=== PATIENT | female | born 1950 | race Caucasian/White ===

== ENCOUNTER 2021-01-06 13:58 | Outpatient (CLI) | payer MEDICARE, SELFPAY ==
--- NOTE | ~2021-01-06 | DEXA_ITS ---
Bone Density Report Name: Heaven Chowdary Age: 70 Sex: Female Ethnicity: White Date of : 1950 Indication: postmenopausal; prior fracture; Referring Provider: Jose Cruz, Radha Study: Bone densitometry was performed. Exam Date: January 06, 2021 Accession number: [id number] Bone Density: Region BMD T-score Z-score Classification AP Spine (L1, L2, L3) 0.761 -2.3 -0.3 Osteopenia Femoral Neck (Left) 0.626 -2.0 -0.2 Osteopenia Total Hip (Left) 0.785 -1.3 0.2 Osteopenia Total Hip Bilateral Avg 0.792 -1.3 0.3 Osteopenia Femoral Neck (Right) 0.583 -2.4 -0.6 Osteopenia Total Hip (Right) 0.797 -1.2 0.3 Osteopenia World Health Organization criteria for BMD impression classify patients as: Normal (T-score at or above -1.0), Osteopenia (T-score between -1.0 and -2.5), or Osteoporosis (T-score at or below -2.5). 10-year Fracture Risk(1): Major Osteoporotic Fracture 20% Hip Fracture 4.5% Reported Risk Factors: [place] (), Neck BMD=0.583, BMI=32.5, previous fracture (1) FRAX(R) Version 3.08. Fracture probability calculated for an untreated patient. Fracture probability may be lower if the patient has received treatment. Clinical Information Provided by Patient: Has had a low trauma fracture Has used the following medications: Vitamin D, Calcium Patient maximum height was 61 Menopause Age: 55 Onset of menses at age 13 Number of children 2 Impression: The patient has low bone mass, based on the Right Femoral Neck T-score. The patient has an estimated ten-year risk of hip fracture of 4.5% and an estimated ten-year risk of major fracture of 20%, based on the WHO FRAX algorithm. The patient has risk factors, including: previous fracture. Discussion: BONE DENSITY IS LOW AT ONE OR MORE SKELETAL SITES. THE PATIENT'S BMD AND CLINICAL RISK FACTORS CONTRIBUTE TO THIS PATIENT'S HIGH RISK OF FRACTURE. This patient's lowest T-score is low at one or more skeletal sites. It meets the World Health Organization's (WHO) criteria for ?low bone mass? (T-score between -1.0 and -2.5). The patient's 10-year risk of hip fracture and 10 year risk of a major osteoporotic fracture as calculated by FRAX exceeds the threshold where pharmacological therapy is recommended by the National Osteoporosis Foundation (NOF). However, all treatment decisions require clinical judgment and consideration of individual patient factors, including patient preferences, comorbidities, previous drug use, risk factors not captured in the FRAX model (e.g., frailty, falls, vitamin D deficiency, increased bone turnover, interval significant decline in bone density) and possible under or overestimation of fracture risk by FRAX. The patient should follow a healthful lifestyle (good nutrition with adequate calcium and vitamin D, and appropriate weight-miladsy
== END 2021-01-06 13:59 | disposition home or self-care (01) ==
LOC: ANHIMG 14:04
PROVIDERS: PCP Family Medicine; Visit Provider Nurse Practitioner
DX: M85.80 Other specified disorders of bone density and structure, unspecified site (principal); Z78.0 Asymptomatic menopausal state
CPT/HCPCS: 77080

== ENCOUNTER 2021-11-13 20:51 | Emergency (ER) | payer MEDICARE, SELFPAY ==
--- NOTE | ~2021-11-13 | XR_ITS ---
EXAM: XR forearm LT 2V DATE: 11/13/2021 21:24 HISTORY: FALL X TODAY . COMPARISON: None available. FINDINGS: Decreased mineralization. No fracture or dislocation. No lytic or blastic lesion. Joint sp aces are maintained. No erosion or periosteal change. Soft tissues within normal limits. IMPRESSION: No acute osseous finding in the left forearm. Reviewed, dictated and finalized at location K.
--- NOTE | ~2021-11-13 | XR_ITS ---
EXAMINATION: XR ribs LT 2V, XR chest 2V DATE: 11/13/2021 21:53 INDICATION: Left-sided chest and rib pain post fall TECHNIQUE: 1. PA and lateral views of the chest were obtained. 2. 3 views of the left ribs were obtained. COMPARISON: Radiographs dated 05/02/2018 and 07/22/2015 FINDINGS: Chest: Chronic elevation of the left hemidiaphragm. No focal airspace opacities, pulmonary edema, pleural ef fusion or pneumothorax. Cardiomediastinal silhouette is normal. Left ribs: No rib fractures identified. Cholecystectomy clips in right upper quadrant. Moderate spondylosis. IMPRESSION: 1. Chronic elevation the left hemidiaphragm. No rib fracture or acute cardiopulmonary disease. Reviewed, dictated and finalized at location A. IMPRESSION: 1. Chronic elevation the left hemidiaphragm. No rib fracture or acute cardiopul monary disease.
--- NOTE | ~2021-11-13 | XR_ITS ---
EXAMINATION: XR humerus LT DATE: 11/13/2021 21:52 INDICATION: Generalized left upper arm pain post fall TECHNIQUE: AP and lateral views of the left humerus were obtained. COMPARISON: None. FINDINGS: Alignment is normal. No fracture. Mild osteoarthritis at the left elbow and acromioclavicular joints. Soft tissues are unremarkable. Gas within the stomach below the elevated left hemidiaphragm. IMPRESSION: 1. No acute osseous abnormality. Reviewed, dictated and finalized at location A.
[2021-11-13 21:07] VITALS: BP 175/79; PULSE 92; RESP 18; TEMP 36.9; O2SAT 98
--- NOTE | 2021-11-13 22:06 | ED.GENADULT ---
HPI - General Adult General Chief complaint: Extremity Injury, Upper Stated complaint: mechanical fall, LUE injury Time Seen by Provider: 11/13/21 21:58 History of Present Illness HPI narrative: Patient is a 71-year-old female here for evaluation of left upper extremity pain after a fall earlier today. 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 No head injury or loss of consciousness. Notes that she has had left upper arm pain, left wrist pain and also pain on the left side of her ribs. The pain in her ribs is worse with deep breaths. She attempted 600 mg of Tylenol about 2 hours prior to arrival, is still having pain. Denies numbness, weakness,or tingling in her arm. She was in her usual state of health prior to the fall. Related Data Home Medications Medication Instructions Recorded Confirmed metoprolol succinate 25 mg 25 mg PO DAILY 07/04/19 04/27/21 tablet,extended release 24 hr (Toprol XL) rivaroxaban 20 mg tablet (Xarelto) 20 mg PO QPM 07/04/19 04/27/21 rosuvastatin 10 mg tablet (Crestor) 10 mg PO DAILY 10/22/19 04/27/21 Allergies Allergy/AdvReac Type Severity Reaction Status Date / Time Iodine and Iodide Containing Allergy Intermediate Hives / Verified 04/27/21 08:44 Produc Red Face Review of Systems Review of Systems: Gen: Denies fevers or chills Eyes: Denies eye pain or visual change ENT: Denies congestion Respiratory: Denies shortness of breath or cough CV: Denies chest pain or palpitations GI: Denies abdominal pain nausea, emesis or diarrhea : denies burning, urgency, frequency or hematuria Musculoskeletal: Reports left upper extremity pain and left-sided rib pain Neuro: Denies numbness, tingling, weakness or focal weakness Skin: Denies rash Except as documented, all other systems reviewed and negative PMFSH Social History Social History Smoking status: Never smoker Alcohol intake: current Exam Narrative: APPEARANCE: Well appearing, no pain in distress, well-nourished. Head: Normocephalic and atraumatic. EYES: PERRLA/EOMI, conjunctivae clear NOSE: No nasal drainage EARS: External ear normal in appearance THROAT: Oropharynx is clear. Mucous membranes are moist. NECK: Supple. No adenopathy, no masses. RESPIRATORY: Airway patent, respirations nonlabored. Clear to auscultation bilaterally, no rales, rhonchi, wheezing. CARDIOVASCULAR: Regular rate and rhythm without murmurs, rubs, or gallops. ABDOMINAL: Normoactive bowel sounds. Soft, nontender, nondistended. No rebound tenderness or guarding. MUSCULOSKELETAL: Left humerus has a large contusion over lateral aspect. Tenderness to palpation over left distal radius, no anatomic snuffbox tenderness. Full range of motion in wrist and fingers without pain. Full range of motion in arm without pain. 2+ radial pulses bilaterally. Tender to palpation over lateral ribs under left breast. NEURO: Normal speech. No focal neurologic deficits. SKIN: Skin is warm and dry. No rashes. PSYCHIATRIC: Normal affect/mood. Course Vital Signs Vital signs: Vital Signs Temperature 98.5 F 11/13/21 21:07 Pulse Rate 92 11/13/21 21:07 Respiratory Rate 18 11/13/21 21:07 Blood Pressure 175/79 H 11/13/21 21:07 Pulse Oximetry 98 11/13/21 21:07 Oxygen Delivery Room Air 11/13/21 21:07 Temperature 98.5 F 11/13/21 21:07 Pulse Rate 99 11/13/21 23:18 Respiratory Rate 18 11/13/21 23:18 Blood Pressure 138/90 11/13/21 23:18 Pulse Oximetry 100 11/13/21 23:18 Oxygen Delivery Room Air 11/13/21 21:07 Medical Decision Making [facility] Narrative Medical decision making narrative: 71-year-old female here for evaluation of left upper extremity pain and left-sided rib pain after a presumed mechanical fall earlier today. No head injury, her vital signs are normal, she is point tender along the ribs on the left l
[2021-11-13] MEDS: LIDOCAINE 5% PATCH 1 PATCH TRANSDERM (22:33)
[2021-11-13 23:18] VITALS: BP 138/90; PULSE 99; RESP 18; O2SAT 100
== END 2021-11-13 23:21 | disposition home or self-care (01) ==
PROVIDERS: Emergency Provider Emergency Medicine; PCP Family Medicine
DX: S49.92XA Unspecified injury of left shoulder and upper arm, initial encounter (principal); S59.912A Unspecified injury of left forearm, initial encounter; S29.9XXA Unspecified injury of thorax, initial encounter; W01.0XXA Fall on same level from slipping, tripping and stumbling without subsequent striking against object, initial encounter
CPT/HCPCS: 71046; 71100; 73060; 73090; 99284; A9270

== ENCOUNTER → 2023-06-11 10:49 | Outpatient (CLI) | payer MEDICARE, SELFPAY ==
--- NOTE | ~2023-06-11 | XR_ITS ---
Cervical Spine: AP, lateral, open-mouth views Clinical History: Pain Findings: The normal lordotic curve is maintained. No fracture identified. There is 3 mm anterolisthe sis of C5 over C6. Intervertebral disc spaces are preserved. There is mild to moderate facet arthropa thy throughout the cervical spine. Pre-vertebral soft tissues are unremarkable. Impression: No fracture. 3 mm anterolisthesis of C5 over C6. [id number] degenerative spondylosis, as above. Reviewed, dictated and finalized at location . [employer] Impression: No fracture. 3 mm anterolisthesis of C5 over C6. [id number] degenerative spondylosis, as above.
== END ==
PROVIDERS: PCP Family Medicine; Visit Provider Nurse Practitioner Family
DX: M47.892 Other spondylosis, cervical region (principal)
CPT/HCPCS: 72040

== ENCOUNTER 2023-08-17 11:35 | Outpatient (CLI) | payer MEDICARE, SELFPAY ==
--- NOTE | ~2023-08-17 | XR_ITS ---
Thoracic spine: Clinical Indication: Radiculopathy AP and lateral views were performed. No fracture is seen. There is normal alignment of the vertebrae. Scattered mild degenerative disc ch anges are present. Paravertebral soft tissues appear normal. Impression: Scattered mild degenerative disc changes in the thoracic spine. Reviewed, dictated and finalized at [facility]. Impression: Scattered mild degenerative disc changes in the thoracic spine.
== END 2023-08-17 11:36 ==
PROVIDERS: PCP Family Medicine; Visit Provider Family Medicine
DX: M51.34 Other intervertebral disc degeneration, thoracic region (principal)
CPT/HCPCS: 72072

== ENCOUNTER 2023-09-29 09:50 | Outpatient (CLI) | payer MEDICARE, SELFPAY ==
--- NOTE | ~2023-09-29 | DEXA_ITS ---
Bone Density Report Name: NIMESH GALAN Age: 73 Sex: Female Ethnicity: White Date of : 1950 Indication: osteopenia; Referring Provider: SALVATORE, EFE Study: Bone densitometry was performed. Exam Date: September 29, 2023 Accession number: [id number] Bone Density: Region BMD T-score Z-score Classification AP Spine(L1-L4) 0.818 -2.1 0.2 Osteopenia Femoral Neck (Left) 0.649 -1.8 0.2 Osteopenia Total Hip (Left) 0.772 -1.4 0.3 Osteopenia Femoral Neck (Right) 0.585 -2.4 -0.4 Osteopenia Total Hip (Right) 0.776 -1.4 0.3 Osteopenia Total Hip Mean 0.774 -1.4 0.3 Osteopenia World Health Organization criteria for BMD impression classify patients as: Normal (T-score at or above -1.0), Osteopenia (T-score between -1.0 and -2.5), or Osteoporosis (T-score at or below -2.5). 10-year Fracture Risk(1): Major Osteoporotic Fracture 14% Hip Fracture 3.5% Reported Risk Factors: [place] (), Neck BMD=0.585, BMI=33.8 (1) FRAX(R) Version 3.08. Fracture probability calculated for an untreated patient. Fracture probability may be lower if the patient has received treatment. Previous Exams: Region Exam Age BMD T-score BMD Change BMD Change Date g/cm2 vs Baseline vs Previous Total Hip(Left) 09/29/2023 73 0.772 -1.4 -0.013 (-1.6%) -0.013 (-1.6%) 01/06/2021 70 0.785 -1.3 Total Hip(Right) 09/29/2023 73 0.776 -1.4 -0.021 (-2.7%) -0.021 (-2.7%) 01/06/2021 70 0.797 -1.2 *Denotes significance at 95% confidence level, LSC for Total Hip = 0.027 g/cm2 # Denotes dissimilar scan types or analysis methods Clinical Information Provided by Patient: Has used the following medications: Vitamin D Patient maximum height was 60.5 Menopause Age: 55 Onset of menses at age 13 Number of children 2 Impression: The patient has low bone mass, based on the Right Femoral Neck T-score. The patient has an estimated ten-year risk of hip fracture of 3.5% and an estimated ten-year risk of major fracture of 14%, based on the WHO FRAX algorithm. No significant bone loss was observed. Discussion: BONE DENSITY IS LOW AT ONE OR MORE SKELETAL SITES. THE PATIENT'S BMD AND CLINICAL RISK FACTORS CONTRIBUTE TO THIS PATIENT'S INCREASED RISK OF FRACTURE. This patient's lowest T-score is low at one or more skeletal sites. It meets the World Health Organization's (WHO) criteria for ?low bone mass? (T-score between -1.0 and -2.5). The patient's 10-year risk of hip fracture as calculated by FR
== END 2023-09-29 09:51 | disposition home or self-care (01) ==
LOC: ANHIMG 09:53
PROVIDERS: PCP Family Medicine; Visit Provider Nurse Practitioner
DX: Z78.0 Asymptomatic menopausal state (principal); M85.89 Other specified disorders of bone density and structure, multiple sites
CPT/HCPCS: 77080

== ENCOUNTER 2023-11-28 09:44 | Outpatient (CLI) | payer MEDICARE, SELFPAY ==
--- NOTE | ~2023-11-28 | CT_ITS ---
CT of the Abdomen and Pelvis: Indication: Abdominal pain Technique: 2.5 mm axial scans were obtained through the abdomen and pelvis following intravenous adm inistration of 100 cc of Omnipaque 350. Dose reduction technique was used on this scan by utilizing a utomated exposure control and iterative reconstruction technique. The dose-length product (DLP) was 7 27.31 mGy-cm. Findings: Scans through the lung bases are unremarkable. The liver, spleen, pancreas, adrenals and right kidney are within normal limits. Cholecystectomy clip s are present. Nonobstructing left renal stones are present. There are atherosclerotic calcifications of the aorta. No lymphadenopathy. No bowel obstruction or bowel wall thickening. There is sigmoid diverticulosis. Images through the pelvis were performed. Urinary bladder unremarkable. No adnexal mass evident. No a scites. Impression: Nonobstructing left renal stones. Reviewed, dictated and finalized at [facility]. Impression: Nonobstructing left renal stones.
[2023-11-28 10:05] LABS: Estimated Glomerular Filt Rate > 60
== END 2023-11-28 09:45 ==
LOC: MICIMG 09:46
PROVIDERS: PCP Family Medicine; Visit Provider Family Medicine
DX: R10.9 Unspecified abdominal pain (principal); N20.0 Calculus of kidney
CPT/HCPCS: 74177; Q9967

== ENCOUNTER 2024-07-24 08:53 | Outpatient (CLI) | payer MEDICARE, SELFPAY ==
--- NOTE | ~2024-07-24 | XR_ITS ---
XR knee LT 3V 07/24/2024 09:30 Indication: Left knee pain Procedure: 3 views left knee Comparison: No prior studies for comparison. Findings: No fracture, subluxation or dislocation. There is mild osteoarthritis of the knee. No joint effusion. Impression: 1: Mild osteoarthritis of the left knee. Reviewed, dictated and finalized at location A. Impression: 1: Mild osteoarthritis of the left knee.
--- NOTE | ~2024-07-24 | XR_ITS ---
XR knee RT 3V 07/24/2024 09:30 INDICATION: Right knee pain PROCEDURE: 3 views right knee COMPARISON: No prior studies for comparison. FINDINGS: Fracture, dislocation or subluxation is not identified. No significant joint effusion. The soft tissues appear within normal limits. No foreign bodies are identified. There is mild patellofem oral compartment osteoarthritis along the lateral facet. IMPRESSION: 1: Mild patellofemoral compartment osteoarthritis. Reviewed, dictated and finalized at location A.
== END 2024-07-24 08:54 | disposition home or self-care (01) ==
LOC: GOSHIMG 08:54
PROVIDERS: PCP Family Medicine; Visit Provider Family Medicine
DX: M17.0 Bilateral primary osteoarthritis of knee (principal)
CPT/HCPCS: 73562

== ENCOUNTER 2024-09-09 09:47 | Outpatient (CLI) | payer MEDICARE, SELFPAY ==
--- NOTE | ~2024-09-09 | MR_ITS ---
MRI of the left knee Clinical history: Pain Technique: Coronal proton density and proton density-weighted images, sagittal proton-density and T2 fat-sat images, and axial proton-density fat-saturated images were acquired. Findings: Anterior and posterior cruciate ligaments are intact. Medial collateral ligament and the la teral collateral ligament complex are intact. Popliteus tendon is intact. There is probable radial tear or partial meniscectomy at the posterior root of the medial meniscus. T here is severe intrasubstance degenerative signal in the posterior horn of the medial meniscus extend ing into the body segment. Lateral meniscus intact. There is diffuse high-grade chondromalacia the medial compartment. Articular cartilage in lateral and patellofemoral compartments is well preserved. There are focal areas of susceptibility artifact of t he proximal tibia and at the medial subcutaneous soft tissues in this region, which could reflect pos t traumatic or postoperative change. Extensor mechanism intact. No joint effusion or Rodriguez's cyst. Impression: Suspected radial tear at the posterior root of the medial meniscus versus possibly postoperative ruiz ge. Severe intrasubstance degenerative signal to posterior horn of the medial meniscus extending to t he body segment. Several metallic foci in the proximal tibia and medial subcutaneous soft tissues could reflect postst enotic versus postoperative change. Correlate with history. 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 Reviewed, dictated and finalized at location M. Impression: Suspected radial tear at the posterior root of the medial meniscus versus possi lillian postoperative change. Severe intrasubstance degenerative signal to posterio r horn of the medial meniscus extending to the body segment. Several metallic foci in the proximal tibia and medial subcutaneous soft tissue s could reflect poststenotic versus postoperative change. Correlate with histor y. 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
--- NOTE | ~2024-09-09 | MR_ITS ---
MRI of the right knee Clinical history: Pain Technique: Coronal proton density and proton density-weighted images, sagittal proton-density and T2 fat-sat images, and axial proton-density fat-saturated images were acquired. Findings: Anterior and posterior cruciate ligaments are intact. Medial collateral ligament and the la teral collateral ligament complex are intact. Popliteus tendon is intact. There is a radial tear at the posterior root of the medial meniscus with superimposed suspected obliq ue/horizontal tear of the posterior horn and body. No lateral meniscal tear evident. There is moderate to high-grade chondromalacia at the medial joint line, with suspected focal early s ubchondral insufficiency fracture in the medial tibial plateau. There is mild amorphous marrow edema at the medial tibial plateau. Extensor mechanism is intact. No significant joint effusion or Rodriguez's cyst. Impression: Suspected early subchondral insufficiency fracture of the medial tibial plateau with surrounding penelope ow edema. Radial tear of the posterior root of the medial meniscus with probable superimposed oblique/horizonta l tear of the posterior horn and body. Reviewed, dictated and finalized at location . Impression: Suspected early subchondral insufficiency fracture of the medial tibial plateau with surrounding marrow edema. Radial tear of the posterior root of the medial meniscus with probable superimp osed oblique/horizontal tear of the posterior horn and body.
== END 2024-09-09 09:48 | disposition home or self-care (01) ==
LOC: GOSHIMG 09:48
PROVIDERS: PCP Family Medicine; Visit Provider Physician Assistant Surgical
DX: M25.562 Pain in left knee (principal); S83.241A Other tear of medial meniscus, current injury, right knee, initial encounter; X58.XXXA Exposure to other specified factors, initial encounter
CPT/HCPCS: 73721

== ENCOUNTER 2024-11-25 07:59 | Emergency (ER) | payer MEDICARE, SELFPAY ==
--- NOTE | ~2024-11-25 | US_ITS ---
EXAMINATION: US venous doppler LE RT DATE: 11/25/2024 10:15 INDICATION: Pain and swelling TECHNIQUE: Grayscale ultrasound images without and with compression and Doppler ultrasound images of the right lower extremity veins were obtained. COMPARISON: None. Reference is made to an MRI examination of the right knee performed 12/10/2024 FINDINGS: The visualized portions of right common femoral vein, profunda (deep) femoral vein, femoral vein, pop liteal vein, peroneal veins, posterior tibial veins, and greater saphenous vein outflow are patent. Within the right popliteal fossa is a anechoic, avascular focus measuring 3.8 x 5.8 x 1.5 cm, an inte rval change from MRI examination dated 09/09/2024 IMPRESSION: No deep venous thrombosis. Right sided (likely) complex Rodriguez's cyst, as detailed above. Reviewed, dictated and finalized at location A.
--- OUTSIDE RECORDS SUMMARY | 2024-11-25 08:03 | XMS_ITS | Clinical Summary ---
Author Organization [facility] [employer] Address [address] [place] [address] Care Team Providers Care [employer] Se[employer] Name Role Phone Amrit Morelos MD Primary Care Provider [phone] [facility],non-owned Affiliates and Associated Physician Practices is amultiple site organization consisting of ambulatory clinics and hospital sitesin [place], [place], [place] and [place]. This disclosure is being madepursuant to the Care Everywhere program and may not contain all information available regarding this patient. Last updated 18.[facility] [employer] Allergies Active Allergy Reactions Criticality Noted Date Comments Iodine Urticaria Medium 05/09/2018 Medications * Be aware that medications may not be up to date on this document. Alwaysverify current medications with the patient. Cholecalciferol (VITAMIN D PO) Take 1 capsule by mouth once daily Active XARELTO 20 MG tablet Take 20 mg by mouth daily with food 9 Active metoprolol succinate XL 24hr (TOPROL XL) 25 MG tablet Take 25 mg by mouth once daily 9 Active diclofenac sodium (VOLTAREN) 1 % gel as needed 1 Active atorvastatin (LIPITOR) 20 MG tablet Take 20 mg by mouth once daily 1 Active triamcinolone acetonide (Kenalog) 0.1 % cream APPLY TOPICALLY TWICE A DAY 4 Active tacrolimus (Protopic) 0.1 % ointment Apply to neck and chest two times daily. 30 days supply. 30 g 3 4 Active Active Problems Problem Noted Date Diagnosed Date Neoplasm of uncertain behavior of skin 1 Assessment & Plan (08/18/2020 9:16 AM CDT): L forearm, favor lipoma - Diagnosis, etiology, treatment options reviewed - Patient interested in lipoma removal - Discussed benefits/risks of removal, including trading lipoma for scar - Patient will plan schedule an appt for lipoma excision Milia of eyelids of both eyes 08/18/2020 Assessment & Plan (08/18/2020 9:16 AM CDT): - Benign, reassurance provided - Pt is interested in removal - referred to [facility] at the cosmetic dermatology office in [place] Seborrheic keratosis, inflamed 08/18/2020 Assessment & Plan (08/18/2020 9:33 AM CDT): - Benign, reassurance provided Chronic anticoagulation 01/15/2020 Essential hypertension 06/27/2018 PAF (paroxysmal atrial fibrillation) 06/27/2018 Paroxysmal SVT (supraventricular tachycardia) Resolved Problems Problem Noted Date Diagnosed Date Resolved Date Verruca vulgaris 12/14/2020 12/14/2020 Encounters Date Type Department Care Team Description 11/18/2024 Travel from Last 3 Months Immunizations Immunization Administration Dates Next Due INFLUENZA VACCINE 02/01/2021 Family History Medical History Relation Name Comments None Known Brother None Known Father None Known Maternal Aunt None Known Maternal Grandfather None Known Maternal Grandmother None Known Maternal Uncle None Known Mother None Known Other None Known Paternal Aunt None Known Paternal Grandfather None Known Paternal Grandmother None Known Paternal Uncle None Known Sister Asthma Neg Hx CVA Neg Hx Cancer - Breast Neg Hx Cancer - Other Neg Hx Cancer - Skin, Melanoma Neg Hx Cancer - Skin, Non Melanoma Neg Hx Eczema Neg Hx Hemophilia Neg Hx Psoriasis Neg Hx Relation Name Status Comments Brother Father Maternal Aunt Maternal Grandfather Maternal Grandmother Maternal Uncle Mother Other Paternal Aunt Paternal Grandfather Paternal Grandmother Paternal Uncle Sister Social History Tobacco Use Types Packs/Day Years Used Date Smoking Tobacco: Never Smokeless Tobacco: Never Tobacco Cessation:Counseling Given: Not Answered Alcohol Use Standard Drinks/Week Comments No 0 (1 standard drink = 0.6 oz pur e alcohol) Comments Unknown Sex and Gender Information Value Date Recorded Sex Assigned at Not on file Legal Sex Female 2:52 PM CDT Gender Identity Not on file Sexual Orientation Not on file Plan of Treatment Upcoming Encounters Date Type Department Care Team (Late st Contact Info) Description 02/25/2025 11:20 AM CDT Office Visit [facility] - Dermatology [address] [place] [address], [place] [id number] Viry Aguilar MD [address] [place] [address] [address] [place] [id number] Health Maintenance Due Date Last Done Comments BONE DENSITY TESTING 1950 COLOGUARD (AGES 45-75) - COL ON CA SCREENING 1950 COLON MONITORING 1950 COLONOSCOPY - COLON CA SCREENING 1950 CT COLONOGRAPHY - COLON CA SCREENING 1950 Colorectal Cancer Screening 1950 FIT - COLON CA SCREENING 1950 FLEX SIG - COLON CA SCREENING 1950 MAMMOGRAM 1950 MEDICARE AWV 12 MONTHS 1950 HEPATITIS C SCREENING 08/24/1968 DTAP/TDAP/TD VACCINES (1 - Tdap) 1969 PNEUMOCOCCAL VACCINE 50+ (1 of 1 - PCV) 2000 ZOSTER VACCINE (1 of 2) 2000 COVID-19 VACCINE (3 - 2023-2 5 season) 2023 05/25/2020, 04/27/2020 DEPRESSION SCREENING 04/30/2024 INFLUENZA VACCINE (#1) 2024 02/01/2021 Respiratory Syncytial Virus (RSV) Vaccine Pt: or over 60 yrs (1 - 1-dose 75+ series) 2025 HEPATITIS B VACCINE Aged Out No longe r eligible based on patient's age to complete this topic HIB VACCINE Aged Out No longer eligi ble based on patient's age to complete this topic HPV VACCINE Aged Out No longer eligi ble based on patient's age to complete this topic MENINGOCOCCAL (Group B) VACCINE SHARED DECISION-MAKING Aged Out No longer eligible based on patient's age to complete this topic MENINGOCOCCAL GROUPS A/C/Y/W VACCINE Aged Out No longer eligible b ased on patient's age to complete this topic Insurance MEDICARE [facility] [place] [address] MEDICARE Care Teams [employer] Relationship Specialty Start Date End Date Amrit Morelos MD [address] [place] [id number] PCP - General 08/24/17
--- OUTSIDE RECORDS SUMMARY | 2024-11-25 08:03 | XMS_ITS ---
Author Organization [facility] suresh Address [address] [place] [address] Care Team Providers Care Clinical Account Liaison Name Role Phone Amrit Morelos MD Primary Care Provider Carol Pereira Unavailable [phone] REASON FOR VISIT 2 week FU, positive PATRICIO, referred by Dr. Amrit Morelos Medications Medication SIG (Take, Route, Frequency, Duration) Notes Start Date End Date Status Xarelto 20 MG TAKE 1 TABLET BY ONCE DAILY Oral; Duration: 90 Days Active Metoprolol Succinate ER 25 MG Oral; Duration: 90 Days Acti ve Clotrimazole-Betamethasone 1-0.05 % External; Duration: 7 Days Active Triamcinolone Acetonide 0.1 % External; Duration: 30 Days Active Clotrimazole-Betamethasone 1-0.05 % External; Duration: 7 Days Active Social History Tobacco Use: Social History Observation Description Date Details (start date - stop date) Never Smoker NA - NA Tobacco Control (Standard) Question Answer Notes Tobacco use: Nonsmoker Encounters Encounter Location Date Provider Diagnosis [facility] [address] [facility] [address] [place] [address] 11/24/2024 Carol Maloney PATRICIO positive R76.8 ; Dry mouth, unspecified R68.2 and Abnormal urinalysis R82.90 Assessments Encounter Date Diagnosis (ICD Code) Assessment Notes Treatment Notes Treatment Clinical Notes Section Notes 11/24/2024 PATRICIO positive (ICD-10 - R76.8) labs discussed, does not meet criteria of lupus, facial swelling and redness have resolved, urine culture - pseudomonas but UA WBC 0-5, will repeat UA, order mailed to her, return in 6 months 11/24/2024 Dry mouth, unspecified (ICD-10 - R68.2) labs discussed, does not meet criteria of lupus, facial swelling and redness have resolved, urine culture - pseudomonas but UA WBC 0-5, will repeat UA, order mailed to her, return in 6 months 11/24/2024 Abnormal urinalysis (ICD-10 - R82.90) labs discussed, does not meet criteria of lupus, facial swelling and redness have resolved, urine culture - pseudomonas but UA WBC 0-5, will repeat UA, order mailed to her, return in 6 months Plan Of Treatment Pending Test Test Name Order Date Urinalysis, Routine-[id number] 11/24/2024 Next Appt Details Follow Up: 6 Months, Reason: Provider Name:Carol Abner, 05/25 11:45:00 AM, [address], [place], [address], Progress Notes * Chaparrita GALANOB:1950 ( 74 yo F)Acc No.[id number]:11/24/2024 Patient: Heaven OAKES Appointment Provider: Harry MALONEY MD :1950 A ge:74 Y S ex:Female Date:11/24/2024 [facility] Pcp:Amrit Morelos MD Subjective: * Chief Complaints: * 2 week FUpositive ANAreferred by Dr. Amrit Morelos * HPI: G eneral Follow up: Synchronous video/audio telecommunication with [employer] Patient has agreed to telehealth visit and is aware insurance will be billed for this visit Location: patient at home, physician in office on zyrtec, facial redness and swelling have resolved, has pain and some swelling in the right knee and right leg she developed redness, itching, roughness and swelling of the face in September 2024. Upper chest, upper back and the neck were affected. Labs were ordered. PATRICIO came back positive. She has had knee pain due to meniscal tear and osteoarthritis. She sees ortho. ROS: no oral ulcers, +dry mouth, no dry eyes, no photosensitivity, no hair loss, no Rayaud's 11/17/24, RF/CCP (-), lupus anticoagulant: consistent with presence of inhibitor, ACL (-), B2GP1 Abs (-), Cr 0.81, GFR 76, LFTs normal, C3, C4, CK, aldolase and ESR normal, UA: 1+LE, urine culture: pseudomonas 10/28/2024, PATRICIO 1:160 (homogeneous, speckled), anti-DNA/SM/CASH CONTROLLER/SCL70/SSA/SSB/chromatin/centromere/Yamilka-1 (-), CRP normalCBC normal. * ROS: G eneral / Constitutional: Patient denies c hange in appetite, chills, fatigue, fever, weight loss, weakness. C omments S [facility] for details. M usculoskeletal: Comments [facility] for details. S kin: Comments [facility] for details . N eurologic: Patient denies d izziness, gait abnormality, headache, tingling / numbness . * Medical History: * Surgical History: C section, cholecystectomy, kidney stone, PCL repair, cardiac ablation * Hospitalization/Major Diagno stic Procedure: * Family History: multiple myeloma. * Social History: T obacco Use: T obacco Control (Standard) T obacco use: N onsmoker. * Medications: T akingClotrimazole-Betamethasone 1-0.05 % Cream External Xarelto 20 MG Tablet TAKE 1 TABLET BY MOUTH ONCE DAILY Oral Metoprolol Succinate ER 25 MG Tablet Extended Release 24 Hour Oral Clotrimazole-Betamethasone 1-0.05 % Cream External Triamcinolone Acetonide 0.1 % Cream External Taking Clotrimazole-Betamethasone 1-0.05 % Cream External Taking Xarelto 20 MG Tablet TAKE 1 TABLET BY MOUTH ONCE DAILY Oral Taking Metoprolol Succinate ER 25 MG Tablet Extended Release 24 Hour Oral Taking Clotrimazole-Betamethasone 1-0.05 % Cream External Taking Triamcinolone Acetonide 0.1 % Cream External Objective: * Vitals: * P ast Orders: L ab:Creatine Kinase,Total-[id number] (Order Date - 11/17/2024) (Collection Date & Time - 11/17/2024 12:20 PM) Value Reference Range Creatine Kinase,Total 93 32-182 - U/L L ab:G6PD,Qn,Bld and Red Cell Count-[id number] (Order Date - 11/17/2024) (Collection Date & Time - 11/17/2024 12:20 PM) Value Reference Range RBC 4.65 3.77-5.28 - x10E6/uL G-6-PD, Quant 312 127-427 - U/10E12 RB C L ab:Aldolase-[id number] (Order Date - 11/17/2024) (Collection Date & Time - 11/17/2024 12:20 PM) Value Reference Range Aldolase 4.2 3.3-10.3 - U/L L ab:Sedimentation Wyrr-Hbgueekakc-[id number] (Order Date - 11/17/2024) (Collection Date & Time - 11/17/2024 12:20 PM) Value Reference Range Sedimentation Rate-Westergren 30 0-40 - mm/ hr L ab:Rheumatoid Factor (RF)-[id number] (Order Date - 11/17/2024) (Collection Date & Time - 11/17/2024 12:20 PM) Value Reference Range Rheumatoid Factor (RF) <10.0 <14.0 - IU/mL L ab:Antihistone Antibodies-[id number] (Order Date - 11/17/2024) (Collection Date & Time - 11/17/2024 12:20 PM) Value Reference Range Anti-histone Abs 0.2 0.0-0.9 - Units L ab:Lupus Anticoagulant Reflex-[id number] (Order - 11/17/2024) (Collection Date & Time - 11/17/2024 12:20 PM) Value Reference Range PTT-LA 34.4 0.0-43.5 - sec dRVVT 78.2 H 0.0-47.0 - sec dRVVT Mix 65.1 H 0.0-40.4 - sec Lupus Reflex Interpretation Comment: - L ab:Anticardiolip Ab, IgA/G/M, Qn-[id number] (Order Date - 11/17/2024) (Collection Date & Time - 11/17/2024 12:20 PM) Value Reference Range Anticardiolipin Ab,IgG,Qn <9 0-14 - GPL U/m L Anticardiolipin Ab,IgM,Qn <9 0-12 - MPL U/m L Anticardiolipin Ab,IgA,Qn <9 0-11 - APL U/m L L ab:Beta-2 Glycoprotein I Ab,G,A,M-[id number] (Order Date - 11/17/2024) (Collection Date & Time - 11/17/2024 12:20 PM) Value Reference Range Beta-2 Glycoprotein I Ab, IgG <9 0-20 - GPI IgG units Beta-2 Glycoprotein I Ab, IgA <9 0-25 - GPI IgA units Beta-2 Glycoprotein I Ab, IgM <9 0-32 - GPI IgM units L ab:Anti-CCP Ab, IgG/IgA-[id number] (Order Date - 11/17/2024) (Collection Date & Time - 11/17/2024 12:20 PM) Value Reference Range Anti-CCP Ab, IgG/IgA 10 0-19 - units L ab:Comp. Metabolic Panel ([id number] (Order Date - 11/17/2024) (Collection Date & Time - 11/17/2024 12:20 PM) Value Reference Range Glucose 94 70-99 - mg/dL BUN 10 8-27 - mg/dL Creatinine 0.81 0.57-1.00 - mg/dL BUN/Creatinine Ratio 12 12-28 - Sodium 139 134-144 - mmol/L Potassium 3.9 3.5-5.2 - mmol/L Chloride 102 96-106 - mmol/L Carbon Dioxide, Total 22 20-29 - mmol/L Calcium 9.1 8.7-10.3 - mg/dL Protein, Total 6.8 6.0-8.5 - g/dL Albumin 4.3 3.8-4.8 - g/dL Globulin, Total 2.5 1.5-4.5 - g/dL Bilirubin, Total 0.5 0.0-1.2 - mg/dL Alkaline Phosphatase 78 44-121 - IU/L AST (SGOT) 17 0-40 - IU/L ALT (SGPT) 20 0-32 - IU/L eGFR 76 >59 - mL/min/1.73 L ab:UA/M w/rflx Culture, Routine-[id number] (Order Date - 11/17/2024) (Collection Date & Time - 11/17/2024 12:20 PM) Value Reference Range Specific [place] 1.009 1.005-1.030 - pH 6.5 5.0-7.5 - Urine-Color Yellow Yellow - Appearance Clear Clear - WBC Esterase 1+ A Negative - Protein Negative Negative/Trace - Glucose Negative Negative - Ketones Negative Negative - Occult Blood Negative Negative - Bilirubin Negative Negative - Urobilinogen,Semi-Qn 0.2 0.2-1.0 - mg/dL Nitrite, Urine Negative Negative - Microscopic Examination See below: - WBC 0-5 0 - 5 - /hpf RBC 0-2 0 - 2 - /hpf Epithelial Cells (non renal) 0-10 0 - 10 - /h pf Casts None seen None seen - /lpf Bacteria None seen None seen/Few - Urine Culture, Routine Final report A - L ab:C4+[id number] (Order Date - 11/17/2024) (Collection Date & Time - 11/17/2024 12:20 PM) Value Reference Range Complement C3, Serum 149 82-167 - mg/dL Complement C4, Serum 23 12-38 - mg/dL * Examination: G eneral Examination: General appearance: a lert, well-nourished and in no acute distress. Head: n ormocephalic, atraumatic. Eyes: n ormal. Skin: n o rash. Lungs: r espiratory effort normal. P sychiatry: Affect / mood: n ormal affect, normal mood. ? N eurology: s peech normal. Assessment: * Assessment: 1. A NA positive - R76.8 (Primary) 2 . D ry mouth, unspecified - R68.2 3 . A bnormal urinalysis - R82.90 labs discussed, does not cynthia t criteria of lupus, facial swelling and redness have resolved, urine culture - pseudomonas but UA WBC 0-5, will repeat UA, order mailed to her, return in 6 months Plan: * Treatment: * Procedure Codes: * Follow Up: 6 Months * Billing Information: * Visit Code: 92780 Office Visit, Est Pt., Level 4. Modifiers: 95 * Procedure Codes: * Sign off status: Completed true * Appointment Provider: Harry MALONEY MD Date: 11/24/2024 Generated for Clarisse delvalle/Anne/eTmikesmitting on: 0 11/25/2024 08:03 AM CDT History and Physical Notes * HPI (History of Present Illness) Category Sub-Category Detail Notes Category Not es General Follow up Synchronous video/audio telecommunication with [employer] Patient has agreed to telehealth visit and is aware insurance will be billed for this visit Location: patient at home, physician in office on zyrtec, facial redness and swelling have resolved, has pain and some swelling in the right knee and right leg she developed redness, itching, roughness and swelling of the face in September 2024. Upper chest, upper back and the neck were affected. Labs were ordered. PATRICIO came back positive. She has had knee pain due to meniscal tear and osteoarthritis. She sees ortho. ROS: no oral ulcers, +dry mouth, no dry eyes, no photosensitivity, no hair loss, no Rayaud's 11/17/24, RF/CCP (-), lupus anticoagulant: consistent with presence of inhibitor, ACL (-), B2GP1 Abs (-), Cr 0.81, GFR 76, LFTs normal, C3, C4, CK, aldolase and ESR normal, UA: 1+LE, urine culture: pseudomonas 10/28/2024, PATRICIO 1:160 (homogeneous, speckled), anti-DNA/SM/CASH CONTROLLER/SCL70/SSA/SSB/ch romatin/centromere/Yamilka-1 (-), CRP normalCBC normal Examination Category Sub-Category Detail Notes Category Not es Neurology speech normal Psychiatry Affect / mood: normal affect, normal mood General Examination General appearance: alert, w ell-nourished and in no acute distress Head: normocephalic, atrau matic Eyes: normal Lungs: respiratory effort n ormal Skin: no rash
[2024-11-25 08:04] VITALS: BP 172/91; PULSE 93; RESP 16; TEMP 36.5; O2SAT 98
--- OUTSIDE RECORDS SUMMARY | 2024-11-25 08:04 | XMS_ITS | Clinical Summary ---
Author Organization [facility] [address] Address [address] [place] [address] Care Team Providers Care Pricing Analyst Name Role Phone Zayda Wheatley OD Unavailable [phone] Amrit Morelos MD Primary Care Provider [phone] Allergies Active Allergy Reactions Criticality Noted Date Comments Iodine Hives,Urticaria Medium 05/09/2018 Medications ayiku-bc-9-dha- qwh-gsyqblj-erk 1,000-230-60 mg capsule Take 1 capsule by mouth daily Active cholecalciferol (VITAMIN D-3) 5,000 unit capsule Take 1 capsule (5,000 Units total) by mouth daily Active atorvastatin (LIPITOR) 20 mg tablet TAKE 1 TABLET BY MOUTH EVERY DAY 90 tablet 1 05/09/2024 Active metoprolol XL (TOPROL-XL) 25 mg extended release tablet Take 1 tablet (25 mg total) by mouth every morning 90 tablet 3 07/30/2024 Active Xarelto 20 mg tablet Take 1 tablet (20 mg total) by mouth daily 90 tablet 3 07/30/2024 Active Active Problems Problem Noted Date Diagnosed Date Calcification of abdominal aorta 01/01/2024 Chronic anticoagulation 01/15/2020 PAF (paroxysmal atrial fibrillation) 06/27/2018 Essential hypertension 06/27/2018 Hyperlipidemia LDL goal <130 06/27/2018 Paroxysmal SVT (supraventricular tachycardia) Encounters Date Type Department Care Team Description 11/13/2024 Orders Only [facility] Card[facility] [address] [place] [address] Provider, MD Vic from Last 3 Months Surgical History Surgery Date Site/Laterality Comments SECTION CHOLECYSTECTOMY KNEE CARTILAGE SURGERY TUBAL LIGATION Medical History Medical History Date Comments Atrial fibrillation (HCC) Hyperlipidemia IBS (irritable bowel syndrome) Osteopenia Cholelithiasis Hypertension Arthritis Kidney stone had one remove in September of 1983 Family History Medical History Relation Name Comments Cancer Father Luis Multiple myeloma Father Luis Kidney disease Mother Alyssa Miscarriages / Stillbirths Sister 2 Kianna Miscarriages / Stillbirths Sister 3 Kinana Relation Name Status Comments Father Luis (Age 71) Mother Alyssa (Age 58) Sister 1 Alive Sister 2 Kianna Sister 3 Kianna Alive Social History Tobacco Use Types Packs/Day Years Used Date Smoking Tobacco: Never Smokeless Tobacco: Never Tobacco Cessation:Counseling Given: Not Answered Alcohol Use Standard Drinks/Week Comments Yes 1 (1 standard drink = 0.6 oz pur e alcohol) Comments Unknown Sex and Gender Information Value Date Recorded Sex Assigned at Not on file Legal Sex Female 12:26 AM [employer] Gender Identity Not on file Sexual Orientation Not on file Obstetrics History Last Filed Vital Signs Vital Sign Reading Time Taken Comments Blood Pressure 120/78 07/30/2024 8:54 AM CDT Pulse 81 07/30/2024 8:54 AM CDT Temperature - - Respiratory Rate - - Oxygen Saturation 94% 07/30/2024 8:54 AM CDT Inhaled Oxygen Concentration - - Weight 80.7 kg (178 lb) 07/30/2024 8:54 AM CDT Height 154.9 cm (5' 1) 07/30/2024 8:54 AM CDT Body Mass Index 33.63 07/30/2024 8:54 AM CDT Plan of Treatment Health Maintenance Due Date Last Done Comments Breast Cancer Screening-Mammogram 1950 Colon Cancer Screening-Colonoscopy 1950 Depression Screening 1950 Fall Risk Assessment 1950 Hepatitis C Screening 1950 Osteoporosis Screening-Bone Density Scan 1950 DTaP/Tdap/Td Vaccine (1 - Tdap) 1961 Hepatitis B Screening 1968 Zoster Vaccine (1 of 2) 2000 Well Visit 65+ 08/30/2015 Pneumococcal vaccine 65+ (2 of 2 - PPSV23) 04/27/2019 04/27/2018 Covid-19 Vaccine ( season) 2023 02/22/2021, 05/25/2020, 04/27/2020 Influenza Vaccine (#1) 2024 , 02/01/2021, 02/17/2019 [facility] [place] [address] MEDICARE [facility] Care Teams Pricing Analyst Relationship Specialty Start Date End Date Amrit Morelos MD [address] [place] [address] [place] [address] PCP - General Family Medicine 01/01/24 Zayda Wheatley OD Referring Physician Optometry 12/12/21
--- OUTSIDE RECORDS SUMMARY | 2024-11-25 08:04 | XMS_ITS | Patient Health Record ---
Author Organization [facility] Address [address] [place] [address] Care Team Providers Care Product Technician Name Role Phone Amrit Morelos MD Primary Care Provider Vianey LevineHilariag Unavailable [phone] Allergies Allergen (clinical drug ingredient) Drug/Non Drug Allergy documented on EMR Reaction Allergy Type Onset Date Status Iodine Unknown Drug Allergy Active Results Component Value Reference Range Notes C4+[id number] Reviewed date:11/21/2024 05:10:54 PM Interpretation: Performing Lab:[facility] [place], [address] [place] [address], Phone - [phone], Director - Jimena Notes/Report: Complement C3, Serum 149 82-167 mg/dL Complement C4, Serum 23 12-38 mg/dL UA/M w/rflx Culture, Routine -[id number] Reviewed date:11/21/2024 05:10:54 PM Interpretation: Performing Lab:[facility] [address], Phone - [phone], Director - Jimena Notes/Report: Specific Meta 1.009 1.005-1.030 pH 6.5 5.0-7.5 Urine-Color Yellow Yellow Appearance Clear Clear WBC Esterase 1+ Negative Protein Negative Negative/Trace Glucose Negative Negative Ketones Negative Negative Occult Blood Negative Negative Bilirubin Negative Negative Urobilinogen,Semi-Qn 0.2 0.2-1.0 mg/dL Nitrite, Urine Negative Negative Microscopic Examination See below: Micr oscopic was indicated and was performed. Urinalysis Reflex This speci men has reflexed to a Urine Culture. WBC 0-5 0 - 5 /hpf RBC 0-2 0 - 2 /hpf Epithelial Cells (non renal) 0-10 0 - 10 /hpf Casts None seen None seen /lpf Bacteria None seen None seen/Few Urine Culture, Routine Final report Result 1 Pseudomonas aeruginosa Ceftazidime-avibactam and ceftolozane-tazobactam may be considered for therapy ONLY when multi-drug resistance (MDR) is demonstrated to meropenem and other tested agents. 10,000-25,000 colony forming units per mL Antimicrobial Susceptibility S = Susceptible; I = Intermediate; R = Resistant P = Positive; N = Negative MICS are expressed in micrograms per mL Antibiotic RSLT#1 RSLT#2 RSLT#3 RSLT#4 Amikacin S Cefepime S Ceftazidime S Ceftazidime/avibactam S Ceftolozane/tazobactam S Ciprofloxacin S Levofloxacin S Meropenem S Piperacillin/Tazobactam S Tobramycin S Comp. Metabolic Panel ([id number] Reviewed date:11/21/2024 05:10:54 PM Interpretation: Performing Lab:[email or web address], Phone - [phone], Director - MIBonilla Notes/Report: Glucose 94 70-99 mg/dL BUN 10 8-27 mg/dL Creatinine 0.81 0.57-1.00 mg/dL eGFR 76 >59 mL/min/1.73 BUN/Creatinine Ratio 12 12-28 Sodium 139 134-144 mmol/L Potassium 3.9 3.5-5.2 mmol/L Chloride 102 96-106 mmol/L Carbon Dioxide, Total 22 20-29 mmol/L Calcium 9.1 8.7-10.3 mg/dL Protein, Total 6.8 6.0-8.5 g/dL Albumin 4.3 3.8-4.8 g/dL Globulin, Total 2.5 1.5-4.5 g/dL Bilirubin, Total 0.5 0.0-1.2 mg/dL Alkaline Phosphatase 78 44-121 IU/L AST (SGOT) 17 0-40 IU/L ALT (SGPT) 20 0-32 IU/L Anti-CCP Ab, IgG/IgA-[id number] Reviewed date:11/21/2024 05:10:54 PM Interpretation: Performing Lab:[email or web address], [place], Phone - [phone], Director - Jimena Notes/Report: Anti-CCP Ab, IgG/IgA 10 0-19 units Negative <20 Weak positive 20 - 39 Moderate positive 40 - 59 Strong positive >59 Beta-2 Glycoprotein I Ab,G,A ,M-[id number] Reviewed date:11/21/2024 05:10:54 PM Interpretation: Performing Lab:[facility] [place], [facility], Phone - [phone], Director - Jimena Notes/Report: Beta-2 Glycoprotein I Ab, IgG <9 0-20 GPI IgG units The reference interval reflects a 3SD or 99th percentile interval, which is thought to represent a potentially clinically significant result in accordance with the International Consensus Statement on the classification criteria for definitive antiphospholipid syndrome (APS). J Thromb Haem 2006;4:295-306. Beta-2 Glycoprotein I Ab, IgA <9 0-25 GPI IgA units The reference interval reflects a 3SD or 99th percentile interval, which is thought to represent a potentially clinically significant result in accordance with the International Consensus Statement on the classification criteria for definitive antiphospholipid syndrome (APS). J Thromb Haem 2006;4:295-306. Beta-2 Glycoprotein I Ab, IgM <9 0-32 GPI IgM units The reference interval reflects a 3SD or 99th percentile interval, which is thought to represent a potentially clinically significant result in accordance with the International Consensus Statement on the classification criteria for definitive antiphospholipid syndrome (APS). J Thromb Haem 2006;4:295-306. Anticardiolip Ab, IgA/G/M, Q n-[id number] Reviewed date:11/21/2024 05:10:54 PM Interpretation: Performing Lab:[facility] [place], [facility], Phone - [phone], Director - Jimena Notes/Report: Anticardiolipin Ab,IgG,Qn <9 0-14 GPL U/mL Negative: <15 Indeterminate: 15 - 20 Low-Med Positive: >20 - 80 High Positive: >80 Anticardiolipin Ab,IgM,Qn <9 0-12 MPL U/mL Negative: <13 Indeterminate: 13 - 20 Low-Med Positive: >20 - 80 High Positive: >80 Anticardiolipin Ab,IgA,Qn <9 0-11 APL U/mL Negative: <12 Indeterminate: 12 - 20 Low-Med Positive: >20 - 80 High Positive: >80 Antihistone Antibodies-[id number] 8 Reviewed date:11/21/2024 05:10:54 PM Interpretation: Performing Lab:[address], Phone - [phone], Director - Jimena Notes/Report: Anti-histone Abs 0.2 0.0-0.9 Units Negative <1.0 Weak Positive 1.0 - 1.5 Moderate Positive 1.6 - 2.5 Strong Positive >2.5 Rheumatoid Factor (RF)-[id number] 2 Reviewed date:11/21/2024 05:10:54 PM Interpretation: Performing Lab:[address], Phone - [phone], - Jimena Notes/Report: Rheumatoid Factor (RF) <10.0 <14.0 IU/mL [facility][id number] Reviewed date:11/21/2024 05:10:54 PM Interpretation: Performing Lab:[address], Phone - [phone], - Jimena Notes/Report: Sedimentation Rate-Westergren 30 0-40 mm/hr G6PD,Qn,Bld and Red Cell Cou nt-[id number] Reviewed date:11/21/2024 05:10:54 PM Interpretation: Performing Lab:[address], Phone - [phone], Director Brad Hess Notes/Report: RBC 4.65 3.77-5.28 x10E6/uL G-6-PD, Quant 312 127-427 U/10E12 RBC When decreased, G-6-PD, Quant. values are associated with acute hemolytic anemia when deficient individuals are exposed to oxidative stress, such as with certain medications (e.g., primaquine), infection, or ingestion of sri beans. Caution: In patients with acute hemolysis (e.g., abnormally low RBC values), testing for G-6-PD may be falsely normal because older erythrocytes with a higher enzyme deficiency have been hemolyzed. Young erythrocytes and reticulocytes have normal or near-normal enzyme activity. Normal values of G-6-PD may be measured for several weeks following a hemolytic event. Creatine Kinase,Total-[id number] Reviewed date:11/21/2024 05:10:54 PM Interpretation: Performing Lab:[facility] Villatoro [facility] [place], Phone - [phone], Director - Jimena Notes/Report: Creatine Kinase,Total 93 32-182 U/L Aldolase-[id number] Reviewed date:11/21/2024 05:10:54 PM Interpretation: Performing Lab:[facility] [place], Phone - [phone], Director - Jimena Notes/Report: Aldolase 4.2 3.3-10.3 U/L Juancarlos Abad CMP14 Default A hand-written panel/profile was received from your office. In accordance with the [facility] Ambiguous Test Code Policy dated October 2002, we have completed your order by using the closest currently or formerly recognized AMA panel. We have assigned Comprehensive Metabolic Panel (14), Test Code #757502 to this request. If this is not the testing you wished to receive on this specimen, please contact the [facility] Client Inquiry/Technical Services Department to clarify the test order. We appreciate your business. Lupus Anticoagulant Reflex-1 [id number] Reviewed date:11/21/2024 05:10:54 PM Interpretation: Performing Lab:[facility] [place], Phone - [phone], Director - Jimena Notes/Report: PTT-LA 34.4 0.0-43.5 sec dRVVT 78.2 0.0-47.0 sec Lupus Reflex Interpretation Comment: No lupus anticoagulant was detected. These results are consistent with specific inhibitors to one or more common pathway factors (X, V, II or fibrinogen). dRVVT Mix 65.1 0.0-40.4 sec Reason For Referral No Information Medications Medication SIG (Take, Route, Frequency, Duration) Notes Start Date End Date Status Xarelto 20 MG TAKE 1 TABLET BY RENEE ONCE DAILY Oral; Duration: 90 Days Active [...] (Standard) Question Answer Notes Tobacco use: Nonsmoker Vital Signs Heart Rate 205 /min 11/13/2024 Temperature 97.7 degrees Fahrenheit 11/13/2024 Oximetry 62 % 11/13/2024 Blood pressure diastolic 70 mm Hg 11/13/2024 Weight-kg 83.46 kg 11/13/2024 Blood pressure systolic 126 mm Hg 11/13/2024 Weight 184 lbs 11/13/2024 Encounters Encounter Location Date Provider Diagnosis [facility] [address] [place] [address] 11/13/2024 Carol Du PATRICIO positive R76.8 ; Facial erythema L53.9 and Dry mouth, unspecified R68.2 [facility] [address] [place] [address] 11/24/2024 Carol Du PATRICIO positive R76.8 ; Dry mouth, unspecified R68.2 and Abnormal urinalysis R82.90 [facility] [address] [place] [address] 10/29/2024 Carol Du [facility] [address] [place] [address] 11/24/2024 Carol Abner Assessments Encounter Date Diagnosis (ICD Code) Assessment Notes Treatment Notes Treatment Clinical Notes Section Notes 11/13/2024 PATRICIO positive (ICD-10 - R76.8) 74 year old female with facial erythema and recent history of facial swelling. PATRICIO came back positive. I am asked to evaluate her for lupus. Additional labs will be ordered. She will continue zyrtec as it has helped with symptoms. Follow up visit will be scheduled. Thank you for referring this patient. cc Dr. Amrit Morelos 11/13/2024 Facial erythema (ICD-10 - L53.9) 74 year old female with facial erythema and recent history of facial swelling. PATRICIO came back positive. I am asked to evaluate her for lupus. Additional labs will be ordered. She will continue zyrtec as it has helped with symptoms. Follow up visit will be scheduled. Thank you for referring this patient. cc Dr. Amrit Morelos 11/24/2024 Dry mouth, unspecified (ICD-10 - R68.2) labs discussed, does not meet criteria of lupus, facial swelling and redness have resolved, urine culture - pseudomonas but UA WBC 0-5, will repeat UA, order mailed to her, return in 6 months 11/24/2024 PATRICIO positive (ICD-10 - R76.8) labs [...] mailed to her, return in 6 months 11/13/2024 Dry mouth, unspecified (ICD-10 - R68.2) 74 year old female with facial erythema and recent history of facial swelling. PATRICIO came back positive. I am asked to evaluate her for lupus. Additional labs will be ordered. She will continue zyrtec as it has helped with symptoms. Follow up visit will be scheduled. Thank you for referring this patient. cc Dr. Amrit Morelos Plan Of Treatment Pending Test Test Name Order Date CARDIOLIPIN IgG,IgM,IgA ANTIBODIES 11/13 RHEUMATOID FACTOR (RF), QUANTITATIVE CK 11/13/2024 CMP(COMPREHENSIVE METABOLIC PANEL) 11/13 C3 AND C4 COMPLEMENTS 11/13/2024 SEDIMENTATION RATE, ESR 11/13/2024 LUPUS ANTICOAGULANT EVALUATION URINALYSIS, WITH MICROSCOPIC, REFLEX CUL TURE 11/13/2024 HISTONE ANTIBODY 11/13/2024 CYCLIC CITRULLINATED PEPTIDE (CCP) AB, I gG/IgA 11/13/2024 G6PD, QUANTITATIVE, RBC 11/13/2024 ALDOLASE 11/13/2024 [id number](IgG,IgA,IgM) 2024 Urinalysis, Routine-[id number] 11/24/2024 Next Appt Details Provider Name:Carol Levine, 05/25 11:45:00 AM, [address], [place], [address], Insurance Providers Payer Name Payer Address Payer Phone Subscriber Number Group Number Insured Name Patient Relationship to Insured Coverage Start Date Coverage End Date Medicare [address] [address] [place] [address] [id number] Heaven Chowdary Self - patient is the insured [facility] [address] [place] [address] [id number] Heaven Chowdary Self - patient is the insured Medical (General) History Medical History History ICD Code atrial fibrillation, hyperte nsion, hyperlipidemia, osteoarthritis, osteopenia, angioedema Surgical History Surgery Date(Month/Year) C section, cholecystectomy, kidney stone, PCL repair, cardiac ablation
--- OUTSIDE RECORDS SUMMARY | 2024-11-25 08:04 | XMS_ITS | Clinical Summary ---
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 Gender Identity Not on file Sexual Orientation Not on file Plan of Treatment Health Maintenance Due Date Last Done Comments Colorectal Cancer Screening Colonoscopy (10 Years) 1950 Hepatitis C 1968 DTaP, Tdap and Td Vaccines ( 1 - Tdap) 1969 Mammogram Screening 1990 Zoster Vaccines (1 of 2) 2000 Dexa Scan (General) 08/30/2015 Pneumococcal Vaccine: 50+ Years (2 of 2 - PPSV23) 04/27/2019 04/27/2018 COVID-19 Vaccine (3 - 2023-2 5 season) 2023 05/25/2020, 04/27/2020 RSV Immunization or 60+ Years (1 - 1-dose 75+ series) 2025 Meningococcal B Vaccine Aged Out No l onger eligible based on patient's age to complete this topic Meningococcal Vaccine Aged Out No matilde vick eligible based on patient's age to complete this topic RSV Immunizations Under 20 Months Aged Out No longer eligible b ased on patient's age to complete this topic
--- OUTSIDE RECORDS SUMMARY | 2024-11-25 08:04 | XMS_ITS | Referral Summary ---
Author Organization [facility] [address] [facility] [address] Address [address] [place] [address] Care Team Providers Care Snack Steward Name Role Phone Zayda Wheatley OD Unavailable Amrit Morelos MD Primary Care Provider [phone] Encounters Date Type Department Care Team Description 11/13/2024 Orders Only [facility] Cardiology [address] [place] [address] Provider, MD Vic from Last 3 Months Allergies Active Allergy Reactions Criticality Noted Date Comments Iodine Hives,Urticaria Medium 05/09/2018 Medications chjov-fb-7-dha- cqa-kgbpwvi-qtd 1,000-230-60 mg capsule Take 1 capsule by [...] goal <130 06/27/2018 Paroxysmal SVT (supraventricular tachycardia) Social History Tobacco Use Types Packs/Day Years Used Date Smoking Tobacco: Never Smokeless Tobacco: Never Tobacco Cessation:Counseling Given: Not Answered Alcohol Use Standard Drinks/Week Comments Yes 1 (1 standard drink = 0.6 oz pur e alcohol) Comments Unknown Sex and Gender Information Value Date Recorded Sex Assigned at Not on file 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
--- OUTSIDE RECORDS SUMMARY | 2024-11-25 08:34 | XMS_ITS | Referral Summary ---
Author Organization [facility] [address] [facility] [address] Address [address] [place] [address] Care Team Providers Care Licensed Nuclear Control Room Operator Name Role Phone Zayda Wheatley OD Unavailable [phone] Amrit Morelos MD Primary Care Provider [phone] Encounters Date Type Department Care Team Description 11/13/2024 Orders Only [facility] Cardiology [address] [place] [address] Provider, MD Vic from Last 3 Months Allergies Active Allergy Reactions Criticality Noted Date Comments Iodine Hives,Urticaria Medium 05/09/2018 Medications yvhql-ab-4-dha- php-kegnwbp-izj 1,000-230-60 mg capsule Take 1 capsule by [...] on file 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
--- OUTSIDE RECORDS SUMMARY | 2024-11-25 08:34 | XMS_ITS | Clinical Summary ---
Author Organization [facility] [address] Address [address] [place] [address] Care Team Providers Care Working Supervisor Name Role Phone Zayda Wheatley OD Unavailable [phone] Amrit Morelos MD Primary Care Provider [phone] Allergies Active Allergy Reactions Criticality Noted Date Comments Iodine Hives,Urticaria Medium 05/09/2018 Medications cdixh-ar-6-dha- wjn-pgbhgav-ymj 1,000-230-60 mg capsule Take 1 capsule by [...] Department Care Team Description 11/13/[address] 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
--- OUTSIDE RECORDS SUMMARY | 2024-11-25 08:34 | XMS_ITS | Clinical Summary ---
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
--- OUTSIDE RECORDS SUMMARY | 2024-11-25 08:34 | XMS_ITS | Clinical Summary ---
Author Organization [facility] Address [address] [facility] [place] [address] Care Team Providers Care Electric Stove Mechanic Name Role Phone Amrit Morelos MD Primary Care Provider [phone] Source Comments [facility],non-owned Affiliates and Associated Physician Practices is amultiple site organization consisting of ambulatory clinics and hospital sitesin [place], [place], [place] and [place]. This disclosure is being madepursuant to the Care Everywhere program and may not contain all information available regarding this patient. Last updated 18.[facility] Allergies Active Allergy Reactions Criticality Noted Date [...] Suyapa at the cosmetic dermatology office in [place] Seborrheic keratosis, inflamed 08/18/2020 Assessment & Plan [...] Office Visit [facility] - Dermatology [address] [place] [address], [place] [id number] Viry Aguilar MD [address] [place] [address] [address] [place] [address] Health Maintenance Due Date Last Done Comments [...] age to complete this topic Insurance MEDICARE [facility] [place] [address] [address] MEDICARE Care Teams Electric Stove Mechanic Relationship Specialty Start Date End Date Amrit Morelos MD [address] [place] [address] PCP - General 08/24/17
[2024-11-25 09:57] VITALS: BP 162/90; PULSE 76; RESP 15; O2SAT 96
[2024-11-25 11:04] VITALS: BP 158/80; PULSE 87; RESP 18; O2SAT 97
--- NOTE | 2024-11-25 11:18 | ED_ITS ---
HPI - Extremity Problem General Chief complaint: Extremity Problem,Nontraumatic Stated complaint: R calf swelling/bruising Time Seen by Provider: 11/25/24 08:06 History of Present Illness HPI Narrative: Patient is a 74-year-old female who presents ER with pain and bruising to the right calf. Worsening over last few days. Had some swelling behind her knee as well. She is concerned she has a DVT. No known meniscus issue in the same knee. She is on Xarelto. No known trauma to the leg. Related Data Home Medications ?Medication ?Instructions ?Recorded ?Confirmed ?Last Taken ?Type metoprolol succinate 25 mg 25 mg PO DAILY 07/04/19 11/19/24 Unknown History tablet,extended release 24 hr (Toprol XL) rivaroxaban 20 mg tablet (Xarelto) 20 mg PO QPM 05/05/22 11/19/24 Unknown History atorvastatin 20 mg tablet mg PO 11/15/23 11/19/24 Unknown History cholecalciferol (vitamin D3) 125 125 mcg PO .every other day 04/08/24 11/19/24 Unknown History mcg (5,000 unit) capsule clotrimazole-betamethasone 1 applic topical 10/23/24 11/19/24 Unknown History %-0.05 % topical cream Allergies Allergy/AdvReac Type Severity Reaction Status Date / Time Iodine and Iodide Containing Allergy Intermediate Hives / Verified 11/25/24 08:06 Produc Red Face Review of Systems Review of Systems: All systems reviewed & are unremarkable except as noted in HPI and below Constitutional: Constitutional: Reports no additional constitutional comp laints Cardiovascular: Cardiovascular: Reports no additional cardiovascular complaints Respiratory: Respiratory: Reports no additional respiratory complaints Musculoskeletal: Musculoskeletal: Reports no additional musculoskeletal complaints [facility] Past Medical History Medical History Hyperlipidemia Benign essential hypertension Atrial fibrillation, new onset Social History Social History Smoking status: Never smoker Alcohol intake: former Substance use: never Substance use type: does not use Current Housing: Decline to Answer Concerned About Future Housing: Decline to Answer Difficulty Paying Gas/Electric Bills: Decline to Answer Difficulty Paying for Meds: Decline to Answer Currently Unemployed: Decline to Answer Education: Decline to Answer Difficulty w/ Childcare or Family Care: Decline to Answer Exam Narrative: GENERAL: Well-appearing, well-nourished, and in no acute distress. HEAD: Normocephalic, atraumatic. ENT: Mucous membranes moist. CHEST: Clear to auscultation. No respiratory distress. HEART: Regular rate and rhythm. Normal peripheral pulses. EXTREMITIES: Normal range of motion. 1+ edema. Mild bruising right calf with yelling over the chandler and slight purplish you medially. SKIN: Warm, dry, no rash. NEURO: Alert and oriented x3. PSYCH: Normal mood and affect. Course Course Emergency Course: Patient educated on imaging results. Appropriate for discharge home. Vital Signs Vital signs: Vital Signs Temperature 97.7 F 11/25/24 08:04 Pulse Rate 93 11/25/24 08:04 Respiratory Rate 16 11/25/24 08:04 Blood Pressure 172/91 H 11/25/24 08:04 Pulse Oximetry 98 11/25/24 08:04 Oxygen Delivery Room Air 11/25/24 08:04 Temperature 97.7 F 11/25/24 08:04 Pulse Rate 87 11/25/24 11:04 Respiratory Rate 18 11/25/24 11:04 Blood Pressure 158/80 H 11/25/24 11:04 Pulse Oximetry 97 11/25/24 11:04 Oxygen Delivery Room Air 11/25/24 08:04 Discharge Plan Discharge Clinical Impression: Contusion of leg, right, Rodriguez's cyst of knee Patient Disposition: Home Condition: Stable Instructions: Rodriguez Cyst (ED), Contusion in Adults (ED) Additional Instructions: Follow-up with your primary care doctor or orthopedic surgeon for further treatment and evaluation. You have no blood clot in your leg. Return the ER if you develop chest pain, you suffered a new injury, or have additional concerns. Patient Language: Bahraini Prescriptions: No Action metoprolol succinate [Toprol XL] 25 mg tablet extended release 24 hr 25 mg PO DAILY Xarelto 20 mg tablet 20 mg PO QPM Rx Instructions: must administer with evening meal cholecalciferol (vitamin D3) 125 mcg (5,000 unit) capsule 125 mcg PO .every other day atorvastatin 20 mg tablet PO amitriptyline-chlordiazepoxide 12.5-5 mg tablet 1 tablet PO Q12H Qty: 60 3RF triamcinolone acetonide 0.1 % cream 1 applic topical BID Qty: 80 1RF clotrimazole-betamethasone 1-0.05 % cream topical hydroxyzine HCl 25 mg tablet 25 mg PO BID PRN (Reason: itching) Qty: 180 0RF Follow-up/Referrals: Amrit Morelos MD [Primary Care Provider] - 1 Week
== END 2024-11-25 11:26 | disposition home or self-care (01) ==
PROVIDERS: Emergency Provider Emergency Medicine; PCP Family Medicine
DX: M71.21 Synovial cyst of popliteal space [Baker], right knee (principal); S80.11XA Contusion of right lower leg, initial encounter; I48.91 Unspecified atrial fibrillation; I10 Essential (primary) hypertension; E78.5 Hyperlipidemia, unspecified; Z79.01 Long term (current) use of anticoagulants; X58.XXXA Exposure to other specified factors, initial encounter
CPT/HCPCS: 93971; 99284